=== PATIENT | male | born 1985 | race Caucasian/White ===

== ENCOUNTER 2024-08-23 20:24 | Emergency (ER) | payer MEDICAID, SELFPAY ==
--- NOTE | ~2024-08-23 | CT_ITS ---
CT of the Abdomen and Pelvis: Indication: Abdominal pain Technique: 2.5 mm axial scans were obtained through the abdomen and pelvis following intravenous adm inistration of 100 cc of Omnipaque 350. Dose reduction technique was used on this scan by utilizing a utomated exposure control and iterative reconstruction technique. The dose-length product (DLP) was 5 71.25 mGy-cm. Findings: Scans through the lung bases are unremarkable. There is diffuse hepatic steatosis. The spleen, pancreas, gallbladder, adrenals and kidneys are withi n normal limits. No evidence of aortic aneurysm. No lymphadenopathy. Possible wall thickening of the cecum/ascending colon. There are shotty right lower quadrant lymph no ryan. No bowel obstruction. Images through the pelvis were performed. Urinary bladder unremarkable. No pelvic mass seen. No ascit es. Impression: Suspected infectious/inflammatory colitis of the cecum/ascending colon. Small shotty right lower quadrant lymph nodes, likely reactive. Reviewed, dictated and finalized at [facility]. CURER Impression: Suspected infectious/inflammatory colitis of the cecum/ascending colon. Small shotty right lower quadrant lymph nodes, likely reactive.
[2024-08-23 20:40] VITALS: BP 141/90; PULSE 92; RESP 18; TEMP 36.5; O2SAT 98
[2024-08-24] LABS: Basophils Percent Auto 0.5 % (0.2-1.2); Eosinophils Absolute Auto 0.4 K/mm3 (0-0.3); Eosinophils Percent Auto 6.3 % (0-4.4); Hematocrit 39.3 % (42.0-52.0); Hemoglobin 13.5 g/dL (14.0-18.0); Immature Granulocyte Absolute 0.03 K/mm3 (0.00-0.031); Immature Granulocyte Percent A 0.5 % (0-0.5); Lymphocytes Absolute Auto 1.07 K/mm3 (0.9-3.2); Lymphocytes Percent Auto 16.2 % (18.3-44.2); Mean Corpuscular HGB Conc 34.4 g/dl (32-36); Mean Corpuscular Volume 87.3 fl (80-100); Mean Platelet Volume 9.7 fl (7.4-10.4); Monocytes Absolute Auto 0.9 K/mm3 (0.1-0.6); Neutrophils Absolute Auto 4.1 K/mm3 (1.3-6.7); Neutrophils Percent Auto 62.5 % (45.5-73.1); Platelet Count Result 213 k/mm3 (150-375); Red Cell Distribution Width 12.7 % (11.5-14.5); White Blood Count 6.6 K/mm3 (4.5-10.0)
[2024-08-24 00:12] LABS: Alanine Aminotransferase 27 U/L (6-50); Albumin Level 4.4 g/dL (3.5-5.1); Alkaline Phosphatase 88 U/L (38-126); Anion Gap 7 mmol/L (4-12); Aspartate Amino Transferase 20 U/L (17-59); Bilirubin,Total 0.8 mg/dL (0.2-1.3); Blood Urea Nitrogen 12 mg/dL (9-20); Calcium 9.3 mg/dL (8.4-10.2); Carbon Dioxide 28 mmol/L (22-30); Chloride 102 mmol/L (98-107); Estimated CRCL calculation 65 ml/min; Estimated Glomerular Filt Rate 57; Glucose 108 mg/dL (65-110); Lipase 81 U/L (23-300); Potassium 3.8 mmol/L (3.4-5.0); Sodium 137 mmol/L (137-145)
--- NOTE | 2024-08-24 01:13 | ED.GENADULT ---
HPI - General Adult General Chief complaint: Nausea/Vomiting/Diarrhea Stated complaint: diarrhea x 5 days Time Seen by Provider: 08/23/24 23:58 History of Present Illness HPI narrative: Patient is a 39-year-old male who presents ER with diarrhea. Ongoing for 5-6 days. Greater than 10 stools a day. Occasionally they will be blood in the stool. Reports he had a colonoscopy several years ago in [place]. He has had a couple issues where he is treated with steroids. Denies specific diagnosis of inflammatory bowel disease/ulcerative colitis/Crohn's disease. He thinks he may have IBS. No known sick contacts. Does not believe he ate any spoiled food. Has diffuse cramping of the abdomen associated with diarrhea. Related Data Allergies Allergy/AdvReac Type Severity Reaction Status Date / Time No Known Drug Allergies Allergy Unknown Unknown Verified 08/23/24 20:29 White Fish Allergy Intermediate Unknown Uncoded 08/23/24 20:29 Review of Systems Review of Systems: All systems reviewed & are unremarkable except as noted in HPI and below Constitutional: Constitutional: Reports no additional constitutional complaints ENT: Reports system reviewed and no additional complaints, except as documented Cardiovascular: Cardiovascular: Reports no additional cardiovascular complaints Respiratory: Respiratory: Reports no additional respiratory complaints Gastrointestinal: Gastrointestinal: Reports abdominal pain, Denies constipation, Reports diarrhea, Denies nausea and Denies vomiting PMFSH Past Medical History Medical History (Updated 08/24/24 @ 03:18 by Shalom Rowan MD) History of asthma Surgical History Surgical History (Updated 08/24/24 @ 01:14 by Shalom Rowan MD) History of colonoscopy Social History Social History (Updated 10/07/19 @ 18:18 by Megha Dao PA-C) Smoking status: Never smoker Exam Narrative: GENERAL: Well-appearing, well-nourished, and in no acute distress. HEAD: Normocephalic, atraumatic. EYES: PERRL and EOMI. ENT: Mucous membranes moist. CHEST: Clear to auscultation. No respiratory distress. HEART: Regular rate and rhythm. Normal peripheral pulses. ABDOMEN: Soft, tender to palpation right upper quadrant with guarding, nondistended. EXTREMITIES: Normal range of motion. No edema. SKIN: Warm, dry, no rash. NEURO: Alert and oriented x3. PSYCH: Normal mood and affect. Course Course Emergency Course: Patient resting comfortably. Received IV fluid. Also received antiemetics and morphine. Labs reassuring. CT scan with ascending colitis discharged on Augmentin. Vital Signs Vital signs: Vital Signs Temperature 97.7 F 08/23/24 20:40 Pulse Rate 92 08/23/24 20:40 Respiratory Rate 18 08/23/24 20:40 Blood Pressure 141/90 H 08/23/24 20:40 Pulse Oximetry 98 08/23/24 20:40 Temperature 97.7 F 08/23/24 20:40 Pulse Rate 92 08/23/24 20:40 Respiratory Rate 18 08/23/24 20:40 Blood Pressure 141/90 H 08/23/24 20:40 Pulse Oximetry 98 08/23/24 20:40 Medical Decision Making Vital Signs Vital Signs: Vital Signs Temperature 97.7 F 08/23/24 20:40 Pulse Rate 92 08/23/24 20:40 Respiratory Rate 18 08/23/24 20:40 Blood Pressure 141/90 H 08/23/24 20:40 Pulse Oximetry 98 08/23/24 20:40 Temperature 97.7 F 08/23/24 20:40 Pulse Rate 92 08/23/24 20:40 Respiratory Rate 18 08/23/24 20:40 Blood Pressure 141/90 H 08/23/24 20:40 Pulse Oximetry 98 08/23/24 20:40 Lab Data 08/23/24 23:54 08/23/24 23:54 Labs: Lab Results 08/23/24 08/24/24 Range/Units 23:54 01:38 WBC 6.6 (4.5-10.0) K/mm3 RBC 4.50 L (4.6-6.20) M/mm3 Hgb 13.5 L (14.0-18.0) g/dL Hct 39.3 L (42.0-52.0) % MCV 87.3 (80-100) fl MCH 30.0 (26-34) pg MCHC 34.4 (32-36) g/dl RDW 12.7 (11.5-14.5) % Plt Count 213 (150-375) k/mm3 MPV 9.7 (7.4-10.4) fl Immature Gran % (Auto) 0.5 (0-0.5) % Neut % (Auto) 62.5 (45.5-73.1) % Lymph % (Auto) 16.2 L (18.3-44.2) % [place] % (Auto) 14.0 H (2.6-8.5) % Eos % (Auto) 6.3 H (0-4.4) % Baso % (Auto) 0.5 (0.2-1.2) % Lymph # (Auto) 1.07 (0.9-3.2) K/mm3 [place] # (Auto) 0.9 H (0.1-0.6) K/mm3 Eos # (Auto) 0.4 H (0-0.3) K/mm3 Baso # (Auto) 0.0 (0.0-0.1) K/mm3 Abs Immat Gran (auto) 0.03 (0.00-0.031) K/mm3 Absolute Neuts (auto) 4.1 (1.3-6.7) K/mm3 Absolute Nucleated RBC 0.000 (0.0-0.012) K/mm3 Nucleated RBC % 0.0 (0.0-0.2) % Sodium 137 (137-145) mmol/L Potassium 3.8 (3.4-5.0) mmol/L Chloride 102 (98-107) mmol/L Carbon Dioxide 28 (22-30) mmol/L Anion Gap 7 (4-12) mmol/L BUN 12 (9-20) mg/dL Creatinine 1.40 H (0.7-1.3) mg/dL Estim Creat Clear Calc 65 ml/min Estimated GFR 57 L (59 - ) Glucose 108 (65-110) mg/dL Calcium 9.3 (8.4-10.2) mg/dL Total Bilirubin 0.8 (0.2-1.3) mg/dL AST 20 (17-59) U/L ALT 27 (6-50) U/L Alkaline Phosphatase 88 (38-126) U/L Total Protein 8.0 (6.3-8.2) g/dL Albumin 4.4 (3.5-5.1) g/dL Lipase 81 (23-300) U/L Urine Color Yellow (Yellow) Urine Appearance Clear (Clear) Urine pH 5.5 (5.0-9.0) Ur Specific [place] 1.021 (1.001-1.035) Urine Protein Trace (Negative) mg/dL Urine Glucose (UA) Negative (Negative) mg/dL Urine Ketones Negative (Negative) mg/dL Ur Blood (Man) Trace (Negative) Urine Nitrate Negative (Negative) Urine Bilirubin Negative (Negative) Urine Urobilinogen 0.2 (<2.0) mg/dL Leukocyte Esterase Rfl Negative (Negative) JEANIE/UL Urine RBC 0-2 (0-2) /hpf Urine WBC 0-5 (0-3) /hpf Ur Squamous Epith Cells None seen (Few) /hpf Urine Bacteria None seen /hpf Urine Casts 0-2 Imaging Data Radiologist's impression: CT abdomen pelvis: Ascending colitis Discharge Plan Discharge Clinical Impression: Colitis Patient Disposition: Home, Self-Care Condition: Stable Instructions: Antibiotic Form, Infectious Colitis (ED) Additional Instructions: Please drink plenty of fluids at home. Return to the emergency department if you develop high fevers, have persistent severe abdominal pain, or have bloody stools or vomit, as these could be signs of a more serious medical emergency. Return to the emergency department if you are unable to keep down liquids because of severe nausea/vomiting. Prescriptions: New amoxicillin-pot clavulanate 875-125 mg tablet 1 tablet PO Q12H Qty: 10 0RF ondansetron 4 mg tablet,disintegrating 4 mg PO Q6H PRN (Reason: nausea and vomiting) Qty: 10 0RF No Action clotrimazole [Clotrimazole AF] 1 % cream 1 applic TOPICAL BID 14 Days Qty: 12 0RF Follow-up/Referrals: [facility] [Primary Care Provider] - Ranjit Sadler MD [Physician] - 1 Week
[2024-08-24] MEDS: SODIUM CHLORIDE 0.9% IV 1,000 ML 999 ML IV CONT (01:32)
[2024-08-24] MEDS: MORPHINE SULFATE (*CRX) 4 MG/ML INJ IV PUSH (01:33)
[2024-08-24] MEDS: ONDANSETRON INJ 4 MG/2 ML VIAL IV PUSH (01:33)
[2024-08-24 01:48] LABS: Add Urine Microscopic? YES; Appearance Urine Clear (Clear); Bacteria Urine None Seen /hpf; Bilirubin Urine Negative (Negative); Blood Urine Trace (Negative); Color Urine Yellow (Yellow); Glucose Urine UA Negative (Negative); Ketones Urine Negative (Negative); Leukocyte Esterase Ur Negative LEU/UL (Negative); Nitrate Urine Negative (Negative); Non Pathogenic Casts 0-2; Protein Urine Trace mg/dL (Negative); RBC Urine 0-2 /hpf (0-2); Specific Grav Ur 1.021 (1.001-1.035); Squamous Epithelial Cell Urine None Seen /hpf (Few); Urobilinogen Urine 0.2 mg/dL (<2.0); WBC Urine 0-5 /hpf (0-3); pH Urine 5.5 (5.0-9.0)
--- NOTE | 2024-08-24 02:46 | PC.NURSE ---
pt sleeping when going to do ortho bp.
[2024-08-24 04:26] VITALS: BP 136/87; PULSE 86; RESP 16; O2SAT 100
[2024-08-24 04:28] VITALS: BP 136/87; PULSE 86; RESP 16; O2SAT 100
== END 2024-08-24 04:30 | disposition home or self-care (01) ==
PROVIDERS: Emergency Medicine; Emergency Provider Emergency Medicine
DX: K52.9 Noninfective gastroenteritis and colitis, unspecified (principal); J45.909 Unspecified asthma, uncomplicated
CPT/HCPCS: 36415; 74177; 80053; 81001; 83690; 85025; 96361; 96374; 96375; 99284; J2270; J2405; J7030; Q9967

== ENCOUNTER 2024-09-12 11:54 | Emergency (ER) | payer SELFPAY ==
--- NOTE | ~2024-09-12 | CT_ITS ---
EXAMINATION: CT abdomen pelvis w con DATE: 09/12/2024 15:04 INDICATION: Abdominal pain. TECHNIQUE: Computed tomography (CT) of the abdomen and pelvis was performed with 100 mL Omnipaque 350 intravenous contrast. Automated exposure control and iterative reconstruction technique were employe d. The dose-length product was 442.25 mGy-cm. COMPARISON: CT abdomen and pelvis 08/24/2024 FINDINGS: The visualized portions of the lung bases show mild atelectasis. No pleural effusion. The h eart size is normal. No pericardial effusion. There is bilateral gynecomastia. The liver, gallbladder , spleen, right wrist, adrenal glands, and kidneys are normal. There are no dilated loops of bowel. T he colon is decompressed. The appendix is normal. There are no pathologically enlarged lymph nodes. T here is no free intraperitoneal fluid. 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 There is mild thoracic and lumbar spondylosis. IMPRESSION: 1. No specific etiology for the patient's symptoms. Reviewed, dictated and finalized at location A. ROUTEMAN
[2024-09-12 12:06] VITALS: BP 147/80; PULSE 94; RESP 16; TEMP 36.8; O2SAT 100
--- NOTE | 2024-09-12 13:52 | ED.ABDPAIN ---
HPI - Abdominal Pain General Chief Complaint: Abdominal Pain Stated Complaint: abdominal pain, blood in stool Time Seen by Provider: 09/12/24 13:52 Focused HPI: This is a 39 year old male that presents to the ER for abdominal pain, diarrhea. Ongoing over the last several weeks. Reports he has had blood in his stool. Was treated for colitis with Augment without relief. He has an appointment with GI October 09. Denies fevers. GENERAL: Well-appearing, well-nourished, and in no acute distress. HEAD: Normocephalic, atraumatic. CHEST: Clear to auscultation. ?No respiratory distress. HEART: Regular rate and rhythm.? NEURO: ?Alert and oriented x3. Patient screened in triage and initial orders placed.? ?Additional care and disposition to be based upon?diagnostic testing and treatment. Related Data Allergies Allergy/AdvReac Type Severity Reaction Status Date / Time No Known Drug Allergies Allergy Unknown Unknown Verified 08/23/24 20:29 White Fish Allergy Intermediate Unknown Uncoded 08/23/24 20:29 PENDING SALE TO [facility] Past Medical History Medical History (Updated 08/25/24 @ 00:00 by Tomas Grimm) History of asthma Surgical History Surgical History (Updated 08/24/24 @ 01:14 by Shalom Rowan MD) History of colonoscopy Social History Social History (Updated 10/07/19 @ 18:18 by Megha Dao PA-C) Smoking status: Never smoker Course Vital Signs Vital signs: Vital Signs Temperature 98.2 F 09/12/24 12:06 Pulse Rate 94 09/12/24 12:06 Respiratory Rate 16 09/12/24 12:06 Blood Pressure 147/80 H 09/12/24 12:06 Pulse Oximetry 100 09/12/24 12:06 Temperature 98.2 F 09/12/24 12:06 Pulse Rate 94 09/12/24 12:06 Respiratory Rate 16 09/12/24 12:06 Blood Pressure 147/80 H 09/12/24 12:06 Pulse Oximetry 100 09/12/24 12:06 Discharge Plan Discharge Instructions: Antibiotic Form Patient Language: Fijian Prescriptions: No Action clotrimazole [Clotrimazole AF] 1 % cream 1 applic TOPICAL BID 14 Days Qty: 12 0RF amoxicillin-pot clavulanate 875-125 mg tablet 1 tablet PO Q12H Qty: 10 0RF ondansetron 4 mg tablet,disintegrating 4 mg PO Q6H PRN (Reason: nausea and vomiting) Qty: 10 0RF Follow-up/Referrals: Ranjit Sadler MD [Primary Care Provider] -
[2024-09-12 14:37] VITALS: BP 138/100; PULSE 89; RESP 16; O2SAT 97
[2024-09-12 14:42] LABS: Basophils Percent Auto 0.5 % (0.2-1.2); Eosinophils Absolute Auto 0.7 K/mm3 (0-0.3); Hematocrit 37.5 % (42.0-52.0); Hemoglobin 12.3 g/dL (14.0-18.0); Immature Granulocyte Absolute 0.02 K/mm3 (0.00-0.031); Immature Granulocyte Percent A 0.3 % (0-0.5); Lymphocytes Absolute Auto 1.08 K/mm3 (0.9-3.2); Mean Corpuscular HGB Conc 32.8 g/dl (32-36); Mean Corpuscular Hemoglobin 29.8 pg (26-34); Mean Corpuscular Volume 90.8 fl (80-100); Mean Platelet Volume 9.6 fl (7.4-10.4); Monocytes Absolute Auto 0.8 K/mm3 (0.1-0.6); Monocytes Percent Auto 13.8 % (2.6-8.5); Neutrophils Absolute Auto 3.4 K/mm3 (1.3-6.7); Neutrophils Percent Auto 56.4 % (45.5-73.1); Platelet Count Result 271 k/mm3 (150-375); Red Blood Count 4.13 M/mm3 (4.6-6.20); Red Cell Distribution Width 13.1 % (11.5-14.5)
--- NOTE | 2024-09-12 14:43 | ED_ITS ---
HPI - Abdominal Pain General Chief Complaint: Abdominal Pain Stated Complaint: abdominal pain, blood in stool Time Seen by Provider: 09/12/24 13:52 Source: patient and family History of Present Illness HPI narrative: 39 YEARS OLD WHITE MALE CAME TO THE ED BY PRIVATE CAR WITH HIS COMPLAINING OF LOWER ABDOMINAL PAIN AND BLOOD IN THE STOOL INTERMITTENT FOR THE LAST 6 WEEKS. SCHEDULED TO SEE PROCESS DESIGNER AT [facility] NEXT MONTH. HE DENIES ANY FEVER OR CHILLS OR NAUSEA OR VOMITING, DIARRHEA OR CONSTIPATION. Related Data Allergies Allergy/AdvReac Type Severity Reaction Status Date / Time No Known Drug Allergies Allergy Unknown Unknown Verified 08/23/24 20:29 White Fish Allergy Intermediate Unknown Uncoded 08/23/24 20:29 Review of Systems 2 Review of Systems: All systems reviewed & are unremarkable except as noted in HPI and below PMFSH Past Medical History Medical History History of asthma Surgical History Surgical History History of colonoscopy Social History Social History Smoking status: Never smoker Exam 2 Narrative: GENERAL APPEARANCE: WELL-DEVELOPED, WELL-NOURISHED SKIN: NORMAL COLOR HEAD: NORMOCEPHALIC, NONTRAUMATIC EYES: CLEAR CONJUNCTIVA ENT: OROPHARYNX NORMAL, EARS NORMAL, NOSE NORMAL NECK: SUPPLE, NONTENDER CHEST AND RESPIRATORY: AIRWAY PATENT, NO RESPIRATORY DISTRESS, NO ACCESSORY MUSCLE USE HEART: REGULAR RATE/RHYTHM ABDOMEN: SOFT, NONTENDER, NO ORGANOMEGALY, QUIET BOWEL SOUNDS, RECTAL EXAM SHOWED NO TENDERNESS, NO MASS, GUAIAC NEGATIVE, NO STOOL IN THE RECTAL POUCH VASCULAR: NORMAL PERIPHERAL PULSES, NORMAL CAPILLARY REFILL. MUSCULOSKELETAL: NORMAL RANGE OF MOTION, NONTENDER BACK NEUROLOGIC: ALERT AND ORIENTED ?3, WINDSCREEN FITTER IS NORMAL TESTED, NO GROSS MOTOR DEFICIT Course Course Emergency Course: PATIENT CAME WITH LOWER ABDOMINAL PAIN AND THE RECTAL BLEED VITAL SIGNS ARE STABLE PHYSICAL EXAMINATION UNREMARKABLE, RECTAL EXAM GUAIAC NEGATIVE BLOOD WORKUP TODAY INCLUDES CBC, CMP, LIPASE SHOWED NO SIGNIFICANT ABNORMALITY CT ABDOMEN AND PELVIS WITH IV CONTRAST SHOWED NO ACUTE PROCESS PATIENT BEEN HAVING RECTAL BLEED INTERMITTENTLY FOR THE LAST 6 WEEKS, HE IS HEMODYNAMICALLY STABLE, H/H STABLE, PATIENT TO FOLLOW-UP WITH HIS PROCESS DESIGNER FOR COLONOSCOPY. A COPY OF THE CT SCAN WAS GIVEN TO THE PATIENT PRIOR TO DISCHARGE. THE PT WAS DISCHARGED TO HOME.THE PT,S CONDITION UPON DISCHARGE WAS FAIR,EDUCATION WAS PROVIDED TO THE PT IN REFERENCE TO THE FINAL IMPRESSION,DISCHARGE STUDY RESULTS,TREATMENT,PROGNOSIS AND NEED FOR FOLLOW UP . Vital Signs Vital signs: Vital Signs Temperature 36.8 C 09/12/24 12:06 Pulse Rate 94 09/12/24 12:06 Respiratory Rate 16 09/12/24 12:06 Blood Pressure 147/80 H 09/12/24 12:06 Pulse Oximetry 100 09/12/24 12:06 Temperature 36.8 C 09/12/24 12:06 Pulse Rate 81 09/12/24 15:29 Respiratory Rate 16 09/12/24 15:29 Blood Pressure 135/87 09/12/24 15:29 Pulse Oximetry 96 09/12/24 15:29 MDM - Abdominal Pain MDM Narrative Medical decision making narrative: Impressions Abdomen/Pelvis CT 09/12/24 15:06 IMPRESSION: 1. No specific etiology for the patient's symptoms. Differential Diagnosis Differential diagnosis: Likely abdominal pain, acute appendicitis, calculus of kidney, constipation, diverticulitis and pancreatitis Medical Records Attestation: I reviewed the patient's medical records. Lab Data Attestation: I reviewed the patient's lab results. 09/12/24 14:34 09/12/24 14:34 Labs: Lab Results 09/12/24 09/12/24 Range/Units 14:34 15:27 WBC 6.0 (4.5-10.0) K/mm3 RBC 4.13 L (4.6-6.20) M/mm3 Hgb 12.3 L (14.0-18.0) g/dL Hct 37.5 L (42.0-52.0) % MCV 90.8 (80-100) fl MCH 29.8 (26-34) pg MCHC 32.8 (32-36) g/dl RDW 13.1 (11.5-14.5) % Plt Count 271 (150-375) k/mm3 MPV 9.6 (7.4-10.4) fl Immature Gran % (Auto) 0.3 (0-0.5) % Neut % (Auto) 56.4 (45.5-73.1) % Lymph % (Auto) 18.0 L (18.3-44.2) % [place] % (Auto) 13.8 H (2.6-8.5) % Eos % (Auto) 11.0 H (0-4.4) % Baso % (Auto) 0.5 (0.2-1.2) % Lymph # (Auto) 1.08 (0.9-3.2) K/mm3 [place] # (Auto) 0.8 H (0.1-0.6) K/mm3 Eos # (Auto) 0.7 H (0-0.3) K/mm3 Baso # (Auto) 0.0 (0.0-0.1) K/mm3 Abs Immat Gran (auto) 0.02 (0.00-0.031) K/mm3 Absolute Neuts (auto) 3.4 (1.3-6.7) K/mm3 Absolute Nucleated RBC 0.000 (0.0-0.012) K/mm3 Nucleated RBC % 0.0 (0.0-0.2) % PT 14.5 (11.1-14.7) Seconds INR 1.1 APTT 30.8 (22.3-36.8) Seconds Sodium 138 (137-145) mmol/L Potassium 3.6 (3.4-5.0) mmol/L Chloride 106 (98-107) mmol/L Carbon Dioxide 28 (22-30) mmol/L Anion Gap 4 (4-12) mmol/L BUN 10 (9-20) mg/dL Creatinine 1.20 (0.7-1.3) mg/dL Estim Creat Clear Calc 75 ml/min Estimated GFR > 60 (59 - ) Glucose 105 (65-110) mg/dL Lactic Acid 0.6 L (0.7-2.0) mmol/L Calcium 8.8 (8.4-10.2) mg/dL Total Bilirubin 0.5 (0.2-1.3) mg/dL AST 22 (17-59) U/L ALT 27 (6-50) U/L Alkaline Phosphatase 75 (38-126) U/L Total Protein 7.0 (6.3-8.2) g/dL Albumin 4.1 (3.5-5.1) g/dL Lipase 108 (23-300) U/L Blood Type A Negative Antibody Screen Negative Imaging Data Radiologist's impression: ITS Impressions Abdomen/Pelvis CT 09/12/24 15:06 IMPRESSION: 1. No specific etiology for the patient's symptoms. Critical Care Time Critical Care Time Critical Care Time: No Discharge Plan Discharge Clinical Impression: PRB (rectal bleeding) Patient Disposition: Home, Self-Care Condition: Stable Instructions: Rectal Bleeding (ED) Additional Instructions: RETURN IF SYMPTOMS ARE WORSENING , CALL PROCESS DESIGNER FOR EARLY APPOINTMENT, TAKE TYLENOL NEEDED FOR ACHES AND PAIN, CONTINUE HOME MEDICATIONS. Patient Language: Serbian Prescriptions: No Action clotrimazole [Clotrimazole AF] 1 % cream 1 applic TOPICAL BID 14 Days Qty: 12 0RF amoxicillin-pot clavulanate 875-125 mg tablet 1 tablet PO Q12H Qty: 10 0RF ondansetron 4 mg tablet,disintegrating 4 mg PO Q6H PRN (Reason: nausea and vomiting) Qty: 10 0RF Follow-up/Referrals: Ranjit Sadler MD [Primary Care Provider] -
[2024-09-12 14:55] LABS: Alanine Aminotransferase 27 U/L (6-50); Albumin Level 4.1 g/dL (3.5-5.1); Alkaline Phosphatase 75 U/L (38-126); Anion Gap 4 mmol/L (4-12); Aspartate Amino Transferase 22 U/L (17-59); Bilirubin,Total 0.5 mg/dL (0.2-1.3); Blood Urea Nitrogen 10 mg/dL (9-20); Calcium 8.8 mg/dL (8.4-10.2); Carbon Dioxide 28 mmol/L (22-30); Chloride 106 mmol/L (98-107); Estimated CRCL calculation 75 ml/min; Estimated Glomerular Filt Rate > 60; Glucose 105 mg/dL (65-110); Potassium 3.6 mmol/L (3.4-5.0); Sodium 138 mmol/L (137-145)
[2024-09-12 14:56] LABS: INR 1.1; Prothrombin Time 14.5 Seconds (11.1-14.7)
[2024-09-12 14:57] LABS: Partial Thromboplastin Time 30.8 Seconds (22.3-36.8)
[2024-09-12 15:29] VITALS: BP 135/87; PULSE 81; RESP 16; O2SAT 96
[2024-09-12] MEDS: SODIUM CHLORIDE 0.9% IV 1,000 ML 999 ML IV CONT (15:30)
[2024-09-12 15:37] LABS: Lipase 108 U/L (23-300)
[2024-09-12 15:45] LABS: Lactic Acid Reflex 0.6 mmol/L (0.7-2.0)
[2024-09-12 18:04] VITALS: BP 137/95; PULSE 80; RESP 16; O2SAT 97
== END 2024-09-12 18:07 | disposition home or self-care (01) ==
PROVIDERS: Physician Assistant; Emergency Provider Emergency Medicine; PCP Emergency Medicine
DX: K62.5 Hemorrhage of anus and rectum (principal); J45.909 Unspecified asthma, uncomplicated
CPT/HCPCS: 36415; 74177; 80053; 83605; 83690; 85025; 85610; 85730; 86850; 86900; 86901; 96360; 99284; J7030; Q9967

== ENCOUNTER 2024-11-02 07:41 | Outpatient (CLI) | payer MEDICAID, SELFPAY ==
--- NOTE | ~2024-11-02 | US_ITS ---
US right upper quadrant INDICATION: Hepatic steatosis PROCEDURE: Realtime right upper abdominal ultrasound. COMPARISON: No prior studies for comparison. FINDINGS: The pancreas is normal without focal mass or pancreatic ductal dilation. Liver echotexture is increased, consistent with fatty infiltration. There is normal directional flow in the portal ve in. The gallbladder is normal without stones, gallbladder wall thickening or pericholecystic fluid. Comm on bile duct measures 5 mm. No sonographic Craft's sign. IMPRESSION: 1: Fatty infiltration of the liver. Reviewed, dictated and finalized at location A. RTMENT DIRECTOR
== END 2024-11-02 07:42 | disposition home or self-care (01) ==
PROVIDERS: PCP Emergency Medicine; Visit Provider Emergency Medicine
DX: K76.0 Fatty (change of) liver, not elsewhere classified (principal)
CPT/HCPCS: 76705

== ENCOUNTER 2025-06-23 21:41 | Emergency (ER) | payer OTHER, SELFPAY ==
[2025-06-23 21:50] VITALS: BP 144/104; PULSE 92; RESP 17; TEMP 35.7; O2SAT 100
[2025-06-23] MEDS: LACTATED RINGERS 1,000 ML 999 ML IV CONT (22:27)
[2025-06-23] MEDS: dexAMETHasone SOD PHOS INJ 10 MG/ML 1 ML VIAL IV PUSH (22:28)
[2025-06-23] MEDS: METOCLOPRAMIDE HCL INJ 10 MG/2 ML VIAL IV PUSH (22:28)
[2025-06-23] MEDS: MAGNESIUM SULF 2 GM/WATER 50ML 2 GM/50 ML BAG IVPB (22:40)
--- NOTE | 2025-06-23 23:13 | PC.NURSE ---
Report received from IVONE [place]. Assumed care of patient at this time.
[2025-06-24 00:15] VITALS: BP 137/86; PULSE 80; RESP 19; O2SAT 94
--- NOTE | 2025-06-24 01:19 | ED_ITS ---
HPI - Headache General Chief Complaint: Headache Stated Complaint: MIGRAINE, N/V Time Seen by Provider: 06/23/25 21:58 History of Present Illness HPI Narrative: Patient who gets migraines intermittently but they usually resolve ibuprofen presents here with persistent headache, with nausea vomiting, did try Zofran and ibuprofen at home without improvement. No recent trauma. Much worse with light. Related Data Allergies Allergy/AdvReac Type Severity Reaction Status Date / Time Fish Containing Products Allergy Severe Anaphylaxis Verified 06/23/25 21:42 Review of Systems Review of Systems: All systems reviewed & are unremarkable except as noted in HPI and below PMFSH Past Medical History Medical History History of asthma Surgical History Surgical History History of colonoscopy Social History Social History Smoking status: Never smoker Exam Narrative: EXAMINATION OF ORGAN SYSTEMS/BODY AREAS: Constitutional: Vital signs per nursing GENERAL:[No acute distress, non-toxic appearing.] HEAD: Normal with no signs of head trauma. EYES: EOMI, conjunctiva normal, PERRL ENT: Hearing grossly intact LUNGS: Nonlabored breathing. HEART: [Regular rate and rhythm] ABD: [Soft], [nontender to palpation] EXT: Normal range of motion SKIN: [No rashes or lesions.] NEURO: [Alert and oriented x 3. No gross focal sensory or strength deficits. Speaking with clear speech, ambulating with steady gait, no facial droop] PSYCH: Normal affect Course Vital Signs Vital signs: Vital Signs Temperature 96.3 F L 06/23/25 21:50 Pulse Rate 92 06/23/25 21:50 Respiratory Rate 17 06/23/25 21:50 Blood Pressure 144/104 H 06/23/25 21:50 Pulse Oximetry 100 06/23/25 21:50 Oxygen Delivery Room Air 06/23/25 21:50 Temperature 96.3 F L 06/23/25 21:50 Pulse Rate 80 06/24/25 00:15 Respiratory Rate 19 06/24/25 00:15 Blood Pressure 137/86 06/24/25 00:15 Pulse Oximetry 94 06/24/25 00:15 Oxygen Delivery Room Air 06/23/25 21:50 MDM - Headache MDM Narrative Medical decision making narrative: 40-year-old male with history of headache presents to the emergency department for headache. Patient is hemodynamically stable. No focal neurological or cranial nerve deficits on exam. No meningeal signs. The headache was gradual in onset, it is not exertional and does not appear consistent with subarachnoid hemorrhage or intracranial bleeding. No trauma. Patient is given headache cocktail including Reglan, Benadryl, fluids, magnesium, dexamethasone. On reevaluation, the patient feels significantly better with the headache resolved. No neurological deficits. Patient is comfortable going home for outpatient follow-up with primary care physician and/or neurology and provided with strict return precautions, especially for worsening headaches, neck pain/stiffness, fever or weakness, numbness/tingling or persistent vomiting. Discharge Plan Discharge Clinical Impression: Migraine Patient Disposition: Home Condition: Stable Instructions: Acute Headache (ED) Additional Instructions: Please follow up with your doctor or neurologist; if your pain returns, if you develop new numbness or weakness or difficulty speaking or anything else concerning, please return to the emergency room. Patient Language: [place] Citizen Prescriptions: No Action clotrimazole [Clotrimazole AF] 1 % cream 1 applic TOPICAL BID 14 Days Qty: 12 0RF amoxicillin-pot clavulanate 875-125 mg tablet 1 tablet PO Q12H Qty: 10 0RF ondansetron 4 mg tablet,disintegrating 4 mg PO Q6H PRN (Reason: nausea and vomiting) Qty: 10 0RF Follow-up/Referrals: Clara Zhou MD [Physician, Neurology] - 2 Days Ranjit Sadler MD [Primary Care Provider, Family Practice]
== END 2025-06-24 00:38 | disposition home or self-care (01) ==
PROVIDERS: Emergency Provider Emergency Medicine; PCP Emergency Medicine
DX: G43.909 Migraine, unspecified, not intractable, without status migrainosus (principal); J45.909 Unspecified asthma, uncomplicated
CPT/HCPCS: 96365; 96366; 96375; 99284; J1100; J1200; J2765; J3475; J7120